=== PATIENT | male | born 1940 | race Caucasian/White ===

== ENCOUNTER 2017-01-14 11:16 | Observation (INO) | payer MEDICARE, OTHER ==
[~2017-01-14] VITALS: Ht 182.9 cm; Wt 98.4 kg
--- NOTE | ~2017-01-14 | ECHO ---
Transthoracic Echocardiography Report (TTE) Demographics Patient Name Gracia IBARRA Date of Study 01/15/2017 Patient Number [id number] Visit Number [id number] Date of 1940 Room Number [id number] Accession Number [id number] Gender Male Age 76 year(s) Referring Crown Ironer Janneth Kline RVT, Physician RDCS Physician Interpreting Rebekah Krueger MD Supervisor Fireworks Assembly Physician Supervising Ordering Physician Ritika Wilson MD, MD/P Nurse Stress Income Auditor Conclusions Contractility Score Summary Global Left Ventricular Hypokinesis was noted. Summary The estimated left ventricular ejection fraction is 45%. Mild to moderate concentric left ventricular hypertrophy. Diastolic assessment reveals Grade I diastolic dysfunction. The right atrium is mild to moderately dilated. The aortic valve is moderately sclerotic. The ascending aorta appears mildly dilated. The maximum diameter measures 3.6 cm. Procedure Type of Study TTE procedure:2D Echocardiogram. Procedure Date Date: 01/15/2017 Start: 11:56 AM Study Location: Inpatient Portable Technical Quality: Fair due to body habitus. Indications:TIA. Appropriate Use Criteria: 8 Patient Status: Routine HR: 67 bpm BP: 138/95 mmHg M-Mode/2D Measurements LV Diastolic Dimension: 3.98 cm LV Systolic Dimension: 3.03 cm LV Septum Diastolic: 1.88 cm LV PW Diastolic: 1.41 cm AO Root Dimension: 3.1 cm Cardiac Output: 3.24 l/min LA Dimension: 3.1 cm EF Estimated: 45 % LVOT: 2.4 cm LVOT VTI: 10.7 cm RV Base: 3.89 cm LV Stroke volume: 48.38 ml RV Length: 8.17 cm TAPSE: 2.17 cm TDI-S': 9.32 cm/s Doppler Measurements AV Peak Velocity: 1.69 m/s MV Peak E-Wave: 0.44 m/s AV Peak Gradient: 11.42 mmHg MV Peak A-Wave: 0.64 m/s AV Mean Gradient: 8 mmHg MV E/A Ratio: 0.69 LVOT Peak Velocity: 0.44 m/s MV P1/2t: 95 msec TR Gradient:20.07 mmHg PV Peak Velocity: 0.57 m/s Estimated RAP:5 mmHg PV Peak Gradient: 1.28 mmHg Estimated RVSP: 25 mmHg Estimated PASP: 25.07 mmHg E' Septal Velocity: 0.05 m/s A' Septal Velocity: 0.07 m/s E' Lateral Velocity: 0.04 m/s A' Lateral Velocity: 0.09 m/s Findings Left Ventricle Mild to moderate concentric left ventricular hypertrophy. Diastolic assessment reveals Grade I diastolic dysfunction. Right Ventricle Normal right ventricle structure and function. Left Atrium Normal left atrial size. There is no evidence of patent foramen ovale or atrial septal defect by color Doppler. Right Atrium The right atrium is mild to moderately dilated. IVC measures 1.65 cm with inspiratory collapse. Mitral Valve Normal mitral valve structure and function. Aortic Valve The aortic valve is moderately sclerotic. Tricuspid Valve Normal tricuspid valve structure and function. Trivial tricuspid regurgitation by color Doppler. Pulmonic Valve Normal pulmonic valve structure and function. Pericardial Effusion No evidence of pericardial effusion. Miscellaneous The ascending aorta appears mildly dilated. The maximum diameter measures 3.6 cm. Pleural Effusion No evidence of pleural effusion. Contractility Score LV regional wall motion:(0-Non visualized 1-Normal 2-Hypokinesis 3-Akinesis 4-Dyskinesis 5-Aneurysm) Signature dtt: Evans Welch (cardio) dtd: 01/15/17 1156 Physician Self Edit
--- NOTE | ~2017-01-14 | DS ---
PATIENT'S NAME: ED IBARRA [facility] AGE: 76 Y [address] ROOM: [id number] [place], [place] [address] LOCATION: [facility] ADMIT DATE: 01/14/2017 Discharge Summary DISCHARGE DATE: 01/16/2017 FAMILY PHYSICIAN: PHYSICIAN, NO ATTENDING PHYSICIAN: Yakov Yost FINAL DIAGNOSES: 1. Transient ischemic attack with right arm weakness. 2. Chronic hypoxic respiratory failure. 3. Gastroesophageal reflux disease. 4. Obstructive sleep apnea. HISTORY: Please see the history and physical dictated by Dr. Yakov Yost for details, but in short, the patient presented with acute onset right upper extremity weakness that had resolved by the time he presented to our facility. LABORATORY DATA: On admission, sodium 141, potassium 3.8, chloride 109, CO2 of 24, BUN 16, creatinine 1. Alkaline phosphatase 50, AST 18, ALT 23. Magnesium 2.2. Cardiac enzymes were negative. His cholesterol was 131, triglycerides 191, HDL 29, LDL 64. White blood cell count on admission was 8.2, hemoglobin 14, hematocrit 42, platelet count 270. Pro-time 10.6, INR 1. IMAGING DATA: Chest x-ray on admission did not show any vascular congestion or acute pneumonia or CHF. CT scan of the head without contrast did not show an acute hemorrhage or midline shift. MRI of the brain did show small vessel ischemic changes. No ischemia or hemorrhage. CARDIOVASCULAR DATA: Echocardiogram returned with an EF of 45%. He had mild to moderate concentric left ventricular hypertrophy, grade 1 diastolic dysfunction. No evidence of left atrial enlargement. Carotid Dopplers, there was no significant blockage. HOSPITAL COURSE: The patient was admitted to the Neuro Trauma Unit. It was felt that he had a TIA. He was placed on aspirin and given a statin. CT scan was done to rule out a bleed. Echocardiogram and carotid Dopplers were obtained. He was monitored on telemetry. He was seen and evaluated by Dr. Ramsey. Once his studies returned all negative, it was felt that he was stable for discharge and could be seen in followup. His echocardiogram returned with an ejection fraction of 45%. In talking with the patient's daughter, he does not have a regular doctor, but I did explain that this needs to be followed up. While in the hospital, he was monitored on telemetry. No atrial fibrillation was noted. PT, OT, and speech did work with him, and it was felt that he was stable enough for discharge. PATIENT'S NAME: ED IBARRA [facility] AGE: 76 Y [address] ROOM: [id number] [place], [place] [address] LOCATION: [facility] ADMIT DATE: 01/14/2017 Discharge Summary DISCHARGE DATE: 01/16/2017 FAMILY PHYSICIAN: PHYSICIAN, JAMES ATTENDING PHYSICIAN: Yakov Yost DISCHARGE INSTRUCTIONS: To follow up with Dr. Ramsey in 2 weeks. He is not to drive until he is re-evaluated. He will have a followup with [facility] in 5 to 7 days as scheduled for Monday January 23, 2017, at 10:30. MEDICATIONS: 1. Aspirin 81 mg daily. 2. Lipitor 40 mg daily. 3. Prilosec 20 mg daily. I did explain at length to the patient, his , and daughter the potential causes of a TIA, the studies that were done to evaluate this, and then I discussed the reason for each of the medications on discharge and potential side affects. ALISON REED MD LAW/modl /[id number] d: 01/16/17 2303 t: 01/17/17 193, DISCHARGE SUMMARY
--- NOTE | ~2017-01-14 | ER ---
PATIENT'S NAME: Gracia IBARRA [facility] AGE: 76 Y [address] ROOM: [place] [id number] LOCATION: [facility] ADMIT DATE: 01/14/2017 ER/Outpatient Report DISCHARGE DATE: FAMILY PHYSICIAN: PHYSICIAN, NO ATTENDING PHYSICIAN: Yakov Yost Time of Arrival: 1116 hours. Time Seen: 1130 hours. IDENTIFICATION: A 76-year-old male. CHIEF COMPLAINT: Right arm and leg pain and weakness. HISTORY OF PRESENT ILLNESS: The patient is brought in by his son-in-law, they live in [place]. This morning, he was complaining of a discomfort in his right axilla, but then could not lift his right arm. He said it was not pain that was limiting him, it was weakness, he just could not lift it. He had a similar episode a couple of days ago with his right leg, he just could not lift his right leg. When I asked him about weakness, he says "both my knees are bad." He does not routinely see a doctor. He has never had a stroke or TIA. Currently, his weakness is completely resolved. He has no pain or weakness at this time. ALLERGIES: NO KNOWN DRUG ALLERGIES. CURRENT MEDICATIONS: Prilosec. MEDICAL PROBLEMS: Gastroesophageal reflux disease and COPD, he wears O2 at h.s. PRIOR SURGERIES: Cholecystectomy and TURP. SOCIAL HISTORY: The patient lives in [place]. He is . Tobacco use, denies. Alcohol use, denies. Drug use, denies. REVIEW OF SYSTEMS: All systems reviewed. CONSTITUTIONAL: The patient has had no fever or chills. HEENT: No headache. He does have a little bit of blurry vision. No double PATIENT'S NAME: Gracia IBARRA [facility] AGE: 76 Y [address] ROOM: [id number] [place], [place] [address] LOCATION: [facility] ADMIT DATE: 01/14/2017 ER/Outpatient Report DISCHARGE DATE: FAMILY PHYSICIAN: PHYSICIAN, NO ATTENDING PHYSICIAN: Yakov Yost vision. No nasal drainage or congestion. No sore throat. NECK: No neck pain or stiffness. CARDIOVASCULAR/RESPIRATORY: No chest pain. He has a cough productive of yellow sputum, but that is not new with his history of COPD. He has no chest pain. No increased shortness of breath. ABDOMEN: He has some low abdominal pain. No nausea or vomiting. He has some gastroesophageal reflux symptoms. He has some chronic loose stools after his cholecystectomy. No blood in his stools. GENITOURINARY: No dark, tarry, or black stools. No dysuria. No increased frequency of urination. MUSCULOSKELETAL: He has joint pain in both knees. SKIN: No rashes. ENDOCRINE: No history of diabetes or thyroid abnormalities. HEME: No history of bleeding diathesis or blood clots. NEUROLOGIC: As noted above. PSYCHIATRIC: No pertinent psych history. FAMILY HISTORY: No pertinent family history identified. PHYSICAL EXAMINATION: VITAL SIGNS: Height 5 feet 6 inches, weight 97 kg. Blood pressure 156/83, pulse 69, respirations 16, temperature 97.1, and saturations 93%. GENERAL: A 76-year-old male, somewhat hard of hearing, and vague in his history sharing. HEENT: Head: Normocephalic, atraumatic. Ears: TMs not visualized. Eyes: Pupils equal and reactive to light and accommodation. Extraocular movements intact. Nose: Mucosa pink. No lesions. Mouth: No lesions. Pharynx benign. NECK: Supple. No lymphadenopathy. LUNGS: Clear to auscultation. Breath sounds are equal. He has few scattered wheezes. HEART: Regular rate and rhythm. No murmur, rub, or gallop. ABDOMEN: Bowel sounds present. Soft, nondistended. No hepatosplenomegaly. No palpable masses. Minimal tenderness to deep palpation in the lower abdomen. No rebound or guarding. No CVA tenderness. SKIN: [place], warm, and dry. No lesions or rashes noted. NEUROLOGIC: The patient is alert and oriented x4. Cranial nerves 2 through 12 grossly intact. Motor strength 5/5 throughout. Sensation is intact to light touch. He has a little bit of dysmetria with his right lower extremity compared to the left, but it is minimal. Linden Coma Score is 15. NIH stroke scale score is 1. LABORATORY DATA AND DIAGNOSTIC DATA: Head CT: Atrophy, but no acute findings. Chest x-ray: No acute process, PATIENT'S NAME: Gracia IBARRA [facility] AGE: 76 Y [address] ROOM: [id number] [place] [id number] LOCATION: [facility] ADMIT DATE: 01/14/2017 ER/Outpatient Report DISCHARGE DATE: FAMILY PHYSICIAN: PHYSICIAN, NO ATTENDING PHYSICIAN: Yakov Yost pending Radiology over-read. CBC normal. INR 1.01. EKG: Right bundle branch block, no previous EKG available for comparison. Chemistry panel unremarkable. Cardiac enzymes x1 are negative. IMPRESSION: 1. Transient ischemic attack. Symptoms essentially resolved with minimal amount of dysmetria on the right lower extremity. Plan for admission per hospitalist with Neurology consultation. 2. Chronic obstructive pulmonary disease. 3. Gastroesophageal reflux disease. LINH CARLSON MD CAR/namital /[id number] d: 01/14/172042 t: 01/19/17700, OUTPATIENT REPORT
--- NOTE | ~2017-01-14 | ENPV ---
Carotid Duplex Study Demographics Patient Name Gracia IBARRA Date of Study 01/15/2017 Patient Number [id number] Gender Male Date of 1940 Age 76 Visit Number [id number] Height 72 Accession Number [id number] Weight 213 Referring Ritika Wilson MD Interpreting Pillo Rooney MD Physician Physician Physician Ordering Physician Ritika Wilson MD Fence Erector Supervisor Chemical Reclamation Equipment Operator Manasa Walton BS, RT Conclusions Summary No evidence of plaque or stenosis in the right internal carotid artery. The right vertebral artery is present with antegrade flow. No evidence of plaque or stenosis in the left internal carotid artery. The left vertebral artery is present with antegrade flow. Procedure Type of Study: Cerebral:Carotid, Carotid Doppler Bilateral. Additional Indications:LT arm weakness Patient Status:Routine. Study Location:Vascular Lab. Technical Quality:Adequate visualization. Velocities are measured in cm/s ; Diameters are measured in cm Carotid Right Measurements Carotid Left Measurements + +--------+--------+ + + + +--------+ --------+ + + !Location !PSV !EDV !Angle !%Stenosis ! !Location !PSV ! EDV !Angle !%Stenosis ! + +--------+--------+ + + + +--------+ --------+ + + !Prox CCA !76 !10 !60 ! ! !Prox CCA !86 ! 11 !58 ! ! + +--------+--------+ + + + +--------+ --------+ + + !Dist CCA !65 !13 !60 ! ! !Dist CCA !49 ! 10 !58 ! ! + +--------+--------+ + + + +--------+ --------+ + + !Prox ICA !46 !13 !58 ! ! !Prox ICA !44 ! 19 !58 ! ! + +--------+--------+ + + + +--------+ --------+ + + !Dist ICA !44 !16 !58 ! ! !Dist ICA !70 ! 26 !58 ! ! + +--------+--------+ + + + +--------+ --------+ + + !Prox ECA !47 ! !46 ! ! !Prox ECA !65 ! !58 ! ! + +--------+--------+ + + + +--------+ --------+ + + !Vertebral !34 ! !60 ! ! !Vertebral !34 ! !58 ! ! + +--------+--------+ + + + +--------+ --------+ + + !Subclavian !53 ! !60 ! ! !Subclavian !57 ! !58 ! ! + +--------+--------+ + + + +--------+ --------+ + + - There is antegrade vertebral flow noted on the right side. - There is antegrade verte bral flow noted on the left side. - Add'l Measurements:ICAPSV/CCAPSV 0.61.ICAEDV/CCAEDV 1.65. - Add'l Measurements:ICAPS V/CCAPSV 0.81.ICAEDV/CCAEDV 2.38. Signature dtt: VALENCIA CABALLERO dtemelia: 01/15/17 1140 Physician Self Edit
--- NOTE | ~2017-01-14 | HP ---
PATIENT'S NAME: [facility] AGE: 76 Y [address] ROOM: [id number] [place], [place] [address] LOCATION: [facility] ADMIT DATE: 01/14/2017 History & Physical DISCHARGE DATE: FAMILY PHYSICIAN: PHYSICIAN, NO ATTENDING PHYSICIAN: Yakov Yost DATE OF SERVICE: CHIEF COMPLAINT: TIA symptoms. HISTORY OF PRESENTING ILLNESS: This 76-year-old white male with previous history of chronic hypoxic respiratory failure and gastroesophageal reflux disease, was brought to [facility] by his son-in-law with right arm weakness that they first noticed this morning. The patient is an extremely poor historian. He relates that he had some problem with the arm last evening, which he characterizes as "a rash." He states that it bothered him, but he can not really specify in what way. The rash apparently resolved by the time he was seen this morning. At some point this morning, the patient's son-in-law arrived at his house to check on him. He complained of right arm weakness at that point and was reportedly unable to move the arm. He had also told his son-in-law that he had experienced some right-sided leg weakness the day before, that also resolved spontaneously. At any rate, the son-in-law, who is a banquet steward, did not notice any speech impairment or apparent facial droop. He subsequently decided to bring him to the emergency room for definitive evaluation and management. On his arrival in the emergency room, all of those symptoms had completely resolved. He denies significant headache, denies dizziness or nausea. Does report some blurred vision, but this is apparently a chronic problem. He denies noticing any scotomata. No significant chest pain or shortness of breath, no congestion or cough. Denies abdominal pain. He has been eating and drinking normally as of late. He complains that he is hungry as he has not eaten all day today. He did stool earlier today. He voids without any significant difficulties. No numbness or tingling in his extremities or any associated physical or constitutional complaints. ALLERGIES: NO KNOWN DRUG ALLERGIES. ILLNESSES: 1. Chronic hypoxic respiratory failure. 2. Obstructive sleep apnea. 3. Gastroesophageal reflux disease. [facility] 76 Y [address] ROOM: [id number] [place], [place] [address] LOCATION: [facility] ADMIT DATE: 01/14/2017 History & Physical DISCHARGE DATE: FAMILY PHYSICIAN: PHYSICIAN, NO ATTENDING PHYSICIAN: Yakov Yost 4. BPH, status post TURP. 5. History of cholecystectomy. 6. Chronic loose stool following cholecystectomy. CURRENT MEDICATIONS: None. FAMILY HISTORY: Negative for cancer or diabetes. SOCIAL HISTORY: He is and lives in [place]. He is a nonsmoker, and there is no significant history of alcohol use. REVIEW OF SYSTEMS: As per HPI. All other organ systems reviewed and are negative. OBJECTIVE: VITAL SIGNS: Temperature 97.1, pulse 69, respirations 16, blood pressure 156/83, O2 saturation 93% on room air, weight is 97 kg. GENERAL: He is a frail, not ill-appearing, lying in the bed, in no acute distress. He is oriented x2 only (not oriented to time). SKIN: Supple, pale, warm, dry. No obvious rashes. HEENT: Otherwise, normocephalic. Sclerae nonicteric. Pupils equal, round, slow to react to light. Extraocular movements appear intact. Nasal turbinates normal in appearance. Oropharynx clear. Mucous membranes are pink and moist. Dentition appears intact. NECK: Supple. No masses or adenopathy. No thyromegaly. No obvious JVD. CHEST: Chest wall is symmetrical. HEART: Regular without murmurs. LUNGS: Clear bilaterally with long expiratory phase. No sarahy wheezes. No areas of consolidation. ABDOMEN: Soft and obese. Nontender. Bowel sounds present. No mass or hepatosplenomegaly. and RECTAL: Not done. EXTREMITIES: Display no significant clubbing, cyanosis, or edema. NEUROLOGIC: Mentation is slowed. Cranial nerves 2 through 12 appear grossly intact. Sensation appears normal. Strength is 4 to 5 out of 5 bilaterally in upper and lower extremities. DTRs are 0 to 1+ symmetrical. Gait is not observed. He did ambulate to the bathroom with standby assistance. LABORATORY AND X-RAY DATA: CBC showed a white blood cell count 8.2, hemoglobin is 14.0, hematocrit 42.0, platelets 270. Chemistries reveal BUN and creatinine of 16 and 1.0 respectively, sodium and potassium of 141 and 3.8, chloride and CO2 are 109 PATIENT'S NAME: Gracia IBARRA [facility] AGE: 76 Y [address] ROOM: [id number] [place], [place] [address] LOCATION: [facility] ADMIT DATE: 01/14/2017 History & Physical DISCHARGE DATE: FAMILY PHYSICIAN: PHYSICIAN, NO ATTENDING PHYSICIAN: Yakov Yost J and 24, calcium is 8.4. AST and ALT of 18 and 23, bilirubin 0.5. Magnesium was 2.2. Glucose 97. PT and PTT of 10.6 and 27 respectively with an INR of 1.01. Cardiac enzymes were negative. CT scan of the brain showed atrophy. No acute intracranial abnormality. ASSESSMENT AND PLAN: 1. Right arm weakness, resolved, diagnosis of exclusion is transient ischemic attack. We will admit for observation. I placed him on the TIA pathway. We will request physical therapy, occupational therapy, and speech therapy evaluations. Also plan for MRI scan of the brain as soon as it is feasible. We will get carotid Dopplers and echocardiography and follow up on those when the results are known. We will place him on aspirin therapy and statin therapy with Lipitor. I discussed this at length with the patient and his son-in-law, who expressed understanding and in agreement. We will consider discharge options tomorrow and depending on his clinical progress. 2. Essential hypertension. We will monitor the trend tonight and consider antihypertensive therapy if he remains persistently elevated. 3. Gastroesophageal reflux disease. Plan to continue with PPI therapy. 4. Chronic hypoxic respiratory failure. Not well characterized. There was a suggestion of chronic obstructive pulmonary disease, but it does not appear that he has ever had any formal evaluation for that. He also has a history of pulmonary nodule, and it is not clear if that was ever followed up. We will review in more detail with him and consider appropriate clinical followup. 5. Morbid obesity. We will need to work on some long-term strategies for weight loss including calorie reduction, increased exercise, balance dietary intake, etc.. 6. Mild protein-calorie malnutrition. Encourage balanced dietary intake as above. 7. Deep venous thrombosis prophylaxis. We will follow the VTE protocol. MD VONDA SHEPPARD/jewell /[id number] D: [id number] T: [id number] HISTORY & PHYSICAL
--- NOTE | ~2017-01-14 | ER ---
PATIENT'S NAME: Gracia IBARRA [facility] AGE: 76 Y [address] ROOM: [place] [address] LOCATION: [facility] ADMIT DATE: 01/14/2017 ER/Outpatient Report DISCHARGE DATE: FAMILY PHYSICIAN: PHYSICIAN, NO ATTENDING PHYSICIAN: Yakov Yost ADDENDUM: I did find an old EKG and [employer] from February of 2013, and at that time, he did have an incomplete right bundle branch block. There are some minimal changes compared to that previous EKG. MD DAYNA MCINTYRE/jewell /[id number] d: 01/14/172026 t: 01/19/17703, OUTPATIENT REPORT
--- NOTE | ~2017-01-14 | CON ---
PATIENT'S NAME: Gracia IBARRA [facility] AGE: 76 Y [address] ROOM: [place] [address] LOCATION: GICU ADMIT DATE: 01/14/2017 Consultation DISCHARGE DATE: FAMILY PHYSICIAN: PHYSICIAN, NO ATTENDING PHYSICIAN: Yakov Yost SUBJECTIVE: This pleasant, 76-year-old gentleman is referred for rehab evaluation, admitted on 01/14 with sudden onset of right upper extremity weakness and he was noticed to be unable to move right upper extremity. He has history of chronic hypoxic respiratory failure, and also history of reflux gastric disease. He had skin rash on the right arm that resolved by next a.m. He had reported the experience of some right lower extremity weakness the day before, but it resolved by the time he was here in the hospital, completely. No speech difficulty was noticed throughout. He did state that at times he was in the ER at [facility]. All his symptoms had resolved. Past History: No specific history of any headaches. He denied any nausea or vomiting. He denied any dizziness. No previous similar condition. No chest pain. No shortness of breath. No tachycardia. No fever. No cough. No expectoration. ALLERGIES: NO REPORTED ALLERGIES. PAST MEDICAL HISTORY: 1. History of chronic hypoxic failure. 2. Obstructive sleep apnea. 3. Reflux gastric disease. 4. Benign prostatic hypertrophy, status post TURP. 5. History of cholecystectomy. 6. Chronic loose stool post cholecystectomy. At the present time, alert and oriented. Speech is clear and not wet. Tongue and soft palate are moving symmetrically. His vital signs are as follows. Blood pressure 152/90, temperature 97.6, pulse 64, and respiration rate 16. He is 6 feet tall and weighs 98.1 kg. He can move all 4 at least about 4+/5 throughout. He maybe a little bit less coordinated with the right side especially when writing and doing very PATIENT'S NAME: Gracia IBARRA [facility] AGE: 76 Y [address] ROOM: [id number] [id number] LOCATION: GICU ADMIT DATE: 01/14/2017 Consultation DISCHARGE DATE: FAMILY PHYSICIAN: PHYSICIAN, NO ATTENDING PHYSICIAN: Yakov Yost meticulous activities. MEDICATIONS: He is on the following medications. 1. Protonix. 2. Tylenol. 3. NaCl 0.9%. 4. Aspirin. 5. Lipitor. 6. Lovenox. ASSESSMENT AND PLAN: This patient has shown fairly nice progress. Basically, he is back to his normal basic activity except for some decreased ability to maneuver fine movements with his right upper extremity. I feel that he can go on outpatient basis for PT, OT, and Speech and follow with his family physician. However, he should not drive. I would like to follow on him in my office in 2 weeks. At the present time, he is on PT, OT, and Speech, already initiated. I will continue that. He is also to do incentive spirometer every 1 hour when awake. Did apply TEDs knee-high with PlexiPulses on him as a prophylaxis for DVT. Thank you for this referral. I will follow alongside while he is here. I did explain everything to him. He verbalized understanding and agreement. MD IRA ALVARADO/modl /[id number] d: 01/15/17 1233 t: 01/15/17 1313, CONSULTATION REPORT
[2017-01-14 11:58] LABS: BASOPHIL % 0.4 %; EOSINOPHIL # 0.1 K/uL (0.0-0.5); EOSINOPHIL % 1.5 %; IMMATURE GRANULOCYTE % 0.2 %; MCH 27.9 pg (27.0-34.0); MCHC 33.3 gm/dL (32.0-36.5); MCV 83.7 fl (83.0-98.0); MONOCYTE # 0.6 K/uL (0.0-1.0); MONOCYTE % 7.4 %; MPV 9.7 fl (9.4-12.4); NEUTROPHIL # (ANC) 4.4 K/uL (1.4-9.0); NEUTROPHIL % 53.5 %; NRBC % 0 /100WBC (0-0.00); PLATELET COUNT 270 K/uL (150-450); RBC 5.02 M/uL (3.50-5.50); RDW-CV 13.2 % (11.9-14.6); WBC 8.2 K/uL (4.0-11.0)
[2017-01-14 12:10] LABS: INR - (THERAPEUTIC) 1.01 (0.92-1.07); PROTIME 10.6 SECONDS (9.8-11.4); PTT 27 SECONDS (25-32)
[2017-01-14 12:24] LABS: ALBUMIN 3.4 gm/dL (3.5-5.0); ALK PHOS 50 IU/L (33-138); ALT 23 IU/L (12-78); ANION GAP 11.8 (10.0-19.0); AST 18 IU/L (10-40); BLOOD UREA NITROGEN 16 mg/dL (6-24); CALCIUM 8.4 mg/dL (8.5-10.5); CHLORIDE 109 mMol/L (96-110); CO2 24 mMol/L (22-32); CPK 48 IU/L (35-332); MAGNESIUM 2.2 mg/dL (1.8-2.6); POTASSIUM 3.8 mMol/L (3.7-5.1); SODIUM 141 mMol/L (135-145); TOTAL BILIRUBIN 0.5 mg/dL (0.0-1.5); TOTAL PROTEIN 7.3 g/dL (6.0-8.4)
[2017-01-14] MEDS ORDERED: PRILOSEC20 MG PO (16:40)
[2017-01-16] MEDS ORDERED: ASPIRIN LO-DOSE81 MG PO (10:19)
[2017-01-16] MEDS ORDERED: LIPITOR40 MG PO (10:21)
== END 2017-01-16 11:00 | disposition disaster alternative care site (69) ==
LOC: GMED 11:16 → GICU 15:49
PROVIDERS: Family Medicine; ADMIT Family Medicine
DX: G45.9 Transient cerebral ischemic attack, unspecified (principal); J96.11 Chronic respiratory failure with hypoxia; K21.9 Gastro-esophageal reflux disease without esophagitis; G47.33 Obstructive sleep apnea (adult) (pediatric); E66.01 Morbid (severe) obesity due to excess calories; E44.1 Mild protein-calorie malnutrition; I10 Essential (primary) hypertension; Z79.82 Long term (current) use of aspirin; Z79.899 Other long term (current) drug therapy; Z90.49 Acquired absence of other specified parts of digestive tract; Z98.890 Other specified postprocedural states
CPT/HCPCS: A9577; G0378; G8979; G8980; G8987; G8988; G8989; G8996; G8997; G9168; G9169; G9170; J1650; J2001